=== PATIENT | male | born 2000 | race African-American/Black ===

== ENCOUNTER 2021-08-24 14:46 | Emergency (ER) | payer MEDICAID, OTHER ==
[2021-08-25 17:38] LABS: SARS-CoV-2 PCR by NAA Not Detected (NotDetected)
== END 2021-08-24 17:04 | disposition home or self-care (01) ==
LOC: CSHERS 14:46
DX: R05.9 Cough, unspecified (principal); Z20.822 Contact with and (suspected) exposure to COVID-19
CPT/HCPCS: 71045; 87804; U0003; U0005